=== PATIENT | female | born 1975 | race Two or more races ===

== ENCOUNTER → 2025-03-26 | Outpatient (CLI) | payer MEDICAID, SELFPAY ==
--- NOTE | 2025-03-26 | XR_ITS ---
Examination: MRI brain without intravenous contrast. Date and time of exam: March 26 2025, 11:00 a.m. INDICATIONS: Headaches dizziness numbness in the face 10 months Technique: Multiple axial and sagittal images of the brain obtained. Siemens high-resolution 1.5 [place] short bore scanners utilized. Sagittal sections, T1-weighted, TR 500, TE 14, are performed. Axial sections proton-density and T2-weighted have been obtained. Inversion recovery axial images, TR 9, 260, TE 111, TI 2500. Diffusion weighted images, axial sections, TR 4800, TE 128, B value 1000 Axial sections, ADC map, TR 4800, TE 128 Findings: Enlargement of the sella turcica is not present. The optic chiasm and infundibular are not remarkable. Prepontine and interpeduncular cisterns are not enlarged. There is no localized enlargement of the medulla or zeke. Fourth ventricle and cerebellar tonsils appear normal in position. No subacute area of hemorrhage density is seen. Mass in the cerebellopontine angle region is not evident. Globes symmetrical. Orbital musculature including medial lateral rectus muscles do not exhibit abnormality. Diffusion-weighted images demonstrate no focus of restricted diffusion. Increased white matter signal evident, multiple punctate foci of increased signal in the white matter Mass effect upon the ventricular system is not identified. 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
== END | disposition home or self-care (01) ==
LOC: SMRI 10:41
PROVIDERS: Referring Provider Physician Assistant; Visit Provider Physician Assistant
DX: R90.82 White matter disease, unspecified (principal); G37.9 Demyelinating disease of central nervous system, unspecified
CPT/HCPCS: 70551